=== PATIENT | female | born 1965 | race Caucasian/White ===

== ENCOUNTER → 2019-08-10 | Outpatient (CLI) | payer BC ==
--- NOTE | 2019-08-10 10:47 | Diagnostic Imaging Report ---
INDICATION: Right elbow pain. TIME OF EXAMINATION: 10:27 AM. COMPARISON: No prior studies are available for comparison. FINDINGS: The alignment is normal. The joint spaces are well-maintained. No fracture, dislocation, or effusion is detected. IMPRESSION: No acute bony abnormality is detected. Dictated by: Dictated on workstation # [id number]
== END ==
LOC: RAD FS 10:20
PROVIDERS: ATTEND Nurse Practitioner Family
DX: M25.521 Pain in right elbow (principal)
CPT/HCPCS: 73080

== ENCOUNTER → 2020-10-25 | Outpatient (CLI) | payer BC ==
--- NOTE | 2020-10-25 10:31 | Diagnostic Imaging Report ---
INDICATION: Knee pain COMPARISON: None available TECHNIQUE: 3 radiographs of the left knee dated 10/25/2020. FINDINGS: No acute fracture or dislocation. No destructive osseous process. Minimal medial joint space narrowing. Small superior patellar enthesophytes. No significant osteophytosis. No knee joint effusion. No suspicious radiopaque foreign body. IMPRESSION: No acute osseous abnormality with very minimal degenerative changes for age. Dictated by: Dictated on workstation # [id number]
== END ==
LOC: RAD FS 09:45
PROVIDERS: ATTEND Nurse Practitioner Family
DX: M25.562 Pain in left knee (principal)
CPT/HCPCS: 73562

== ENCOUNTER 2021-12-01 05:32 | Outpatient (RCR) | payer BC ==
[~2021-12-01] VITALS: Ht 157.5 cm; Wt 83.0 kg
== END 2021-12-01 08:24 | disposition home or self-care (01) ==
LOC: PREOP 05:32
PROVIDERS: ATTEND Surgery
DX: Z01.818 Encounter for other preprocedural examination (principal)

== ENCOUNTER → 2021-12-01 | Outpatient (CLI) | payer BC ==
[~2021-12-01] MED LIST: BUPR-168 PO; CYCL10TA25 PO; ESTR0.62 PO; GABA300S2 PO; MELO15TA14 PO; METF-399 PO; ROSU20TA32 PO
== END ==
LOC: LAB FS 10:55
PROVIDERS: ATTEND Surgery
DX: R10.13 Epigastric pain (principal); Z20.822 Contact with and (suspected) exposure to COVID-19
CPT/HCPCS: 87635

== ENCOUNTER 2021-12-04 08:03 | Day surgery (SDC) | payer BC ==
[~2021-12-04] VITALS: Ht 157.5 cm; Wt 83.3 kg
[2021-12-04] MEDS ORDERED: LACTATED RINGERS 1,000 ML IV ONE (08:11)
[2021-12-04] MEDS ORDERED: LACTATED RINGERS 1,000 ML IV STA (08:24)
[2021-12-04 08:25] VITALS: BP 120/81
--- NOTE | 2021-12-04 08:28 | Progress Note-Pre Operative ---
Pre-Operative Progress Note H&P Reviewed The H&P was reviewed, patient examined and no changes noted. Time Seen by Provider: 08:23 Date H&P Reviewed: Dec 04, 2021 Time H&P Reviewed: 08:23 Pre-Operative Diagnosis: Epigastric pain, GERD JULIANO DUARTE DO Dec 04, 2021 08:28
[2021-12-04] MEDS ORDERED: HURRICAINE EXT TUBE (BENZOCAINE) XX PRN (08:30)
[2021-12-04] MEDS ORDERED: PROPOFOL INJECTION 50 ML IV ONE (09:55)
[2021-12-04] MEDS ORDERED: MIDAZOLAM 2 MG/2 ML (VERSED) VIAL ONE (09:55)
--- NOTE | 2021-12-04 10:09 | Progress Note-Post Operative ---
Post-Operative Progess Note Surgeon (s)/Sawyer Helper (s) Surgeon JULIANO DUARTE DO Sawyer Helper: none Pre-Operative Diagnosis Epigastric pain, GERD Post-Operative Diagnosis Gastritis Small hiatal hernia Esophagitis Procedure & Operative Findings Date of Procedure 12/04/21 Procedure Performed/Findings EGD with bx PROCEDURE NOTE: After informed consent was obtained, the patient was brought to the endoscopy suite, placed in bed in left lateral decubitus position. She was administered IV sedation by the MASTER SONAR TECHNICIAN who then monitored vitals the entire time, heart rate, blood pressure and pulse ox and the scope was inserted down the mouth through the esophagus into the stomach. On the way down, noted some mild esophagitis, took a picture, pushed into the stomach, pushed past the antrum into the duodenum. Duodenum looked good. Pulled back and did a biopsy of antrum, then retroflexed the scope, saw a small hiatal hernia, took a picture of this and then pulled the scope into the GE junction, took another picture of the hiatal hernia and then did two biopsies of the GE junction. Pushed the scope back into the stomach, suctioned all the air out of the stomach. At this point pulled the scope up the esophagus and out the mouth. The patient tolerated the procedure, and she recovered in endoscopy suite. Anesthesia Type IV sedation by MASTER SONAR TECHNICIAN Estimated Blood Loss Estimated blood loss (mL): scant Specimens/Packing Specimens Removed antral bx GE jxn bx x 2 JULIANO DUARTE DO Dec 04, 2021 10:09
--- NOTE | 2021-12-04 10:10 | Endoscopy Discharge Instruct ---
Endo Procedure/Findings Findings 1.: Gastritis 2.: Hiatal Hernia Discharge Instructions - Activity: You might feel a little sleepy until tomorrow. This is due to the medicine you received to relax you. Until tomorrow, you should: NOT drive a car, operate machinery or power tools. NOT drink any alcoholic beverages. NOT make any important decisions or sign importortant papers. Do not return to work until tomorrow, unless otherwise instructed. Resume previous activities tomorrow. Diet: Start by taking liquids. If you tolerate liquids, advance to solid food. 1.: EGD in 1 year, EGD in 3 years (depending on pathology) Notify Physician - If you experience excessive bleeding, unusual abdominal pain, fever, or chest pain, contact your doctor immediately. JULIANO DUARTE DO Dec 04, 2021 10:10
[2021-12-04 10:11] VITALS: BP 124/66
[2021-12-04 10:16] VITALS: BP 141/75
[2021-12-04 10:21] VITALS: BP 124/68
[2021-12-04 10:25] VITALS: BP 124/68
--- NOTE | 2021-12-04 10:47 | Anesthesia-General Post-Op ---
MAC Patient Condition Mental Status/LOC: Same as Preop Cardiovascular: Satisfactory Nausea/Vomiting: Absent Respiratory: Satisfactory Pain: Controlled Complications: Absent Post Op Complications Complications None Follow Up Care/Instructions Patient Instructions None needed. Anesthesiology Discharge Order Discharge Order Patient is doing well, no complaints, stable vital signs, no apparent adverse anesthesia problems. No complications reported per nursing. OSCAR MONTALVO CRNA Dec 04, 2021 10:47
[2021-12-04 10:50] VITALS: BP 123/70
== END 2021-12-04 10:50 | disposition home or self-care (01) ==
LOC: ENDO 08:03
PROVIDERS: ATTEND Surgery
DX: K29.70 Gastritis, unspecified, without bleeding (principal); K21.00 Gastro-esophageal reflux disease with esophagitis, without bleeding; K44.9 Diaphragmatic hernia without obstruction or gangrene; F17.200 Nicotine dependence, unspecified, uncomplicated; E11.40 Type 2 diabetes mellitus with diabetic neuropathy, unspecified; F32.A Depression, unspecified; F41.9 Anxiety disorder, unspecified; Z79.84 Long term (current) use of oral hypoglycemic drugs; Z79.899 Other long term (current) drug therapy

== ENCOUNTER 2021-12-07 05:33 | Outpatient (CLI) | payer BC ==
[~2021-12-07] VITALS: Ht 160 cm; Wt 73.0 kg
== END 2021-12-07 11:21 | disposition home or self-care (01) ==
LOC: PREOP 05:33
PROVIDERS: ATTEND Surgery
DX: Z01.818 Encounter for other preprocedural examination (principal)

== ENCOUNTER 2021-12-13 09:16 | Day surgery (SDC) | payer BC ==
[2021-12-13] VITALS (10 sets, daily range): BP systolic 121–165; BP diastolic 58–91
[~2021-12-13] VITALS: Ht 160 cm; Wt 73.0 kg
--- NOTE | 2021-12-13 09:38 | Progress Note-Pre Operative ---
Pre-Operative Progress Note H&P Reviewed The H&P was reviewed, patient examined and no changes noted. Time Seen by Provider: 09:34 Date H&P Reviewed: Dec 13, 2021 Time H&P Reviewed: 09:34 Pre-Operative Diagnosis: back lipoma JULIANO DUARTE DO Dec 13, 2021 09:38
[2021-12-13] MEDS ORDERED: ONDANSETRON 4 MG/2 ML (SDV) Z0FRAN ONE (09:43)
[2021-12-13] MEDS ORDERED: GLYCOPYRROLATE 0.2 MG/ML (ROBINUL) 2 ML VIAL ONE ×2 (09:43→09:44)
[2021-12-13] MEDS ORDERED: proPOfol 200 MG/20 ML (DIPRIVAN) VIAL IV ONE (09:43)
[2021-12-13] MEDS ORDERED: NEOSTIGMINE 3 MG/3 ML VIAL ONE ×2 (09:43→09:44)
[2021-12-13] MEDS ORDERED: fentaNYL INJ 100 MCG/2 ML AMP ONE (09:43)
[2021-12-13] MEDS ORDERED: MIDAZOLAM 2 MG/2 ML (VERSED) VIAL ONE (09:43)
[2021-12-13] MEDS ORDERED: LIDOCAINE PF 2% 5 ML (XYLOCAINE) VIAL ONE (09:43)
[2021-12-13] MEDS ORDERED: ROCURONIUM 50 MG/5 ML (ZEMURON) VIAL IV ONE (09:44)
[2021-12-13] MEDS ORDERED: LIDOCAINE/EPI 1%-1:200,000 (XYLOCAINE) 30 ML VIAL ONE (09:52)
[2021-12-13] MEDS ORDERED: ceFAZolin 2 GM IV Premixed 50 ML ONE (09:55)
[2021-12-13] MEDS ORDERED: LACTATED RINGERS 1,000 ML IV PRN (10:30)
[2021-12-13] MEDS ORDERED: ceFAZolin 2 GM IV Premixed 50 ML IV ONE (10:30)
[2021-12-13] MEDS ORDERED: SEVOFLURANE (ULTANE) 15 ML INHAL SOLN ONE (11:18)
[2021-12-13] MEDS ORDERED: morphine INJ 10 MG/ML 1ML (SYR OR VIAL) IVP ONE (12:00)
[2021-12-13] MEDS ORDERED: ONDANSETRON 4 MG/2 ML (SDV) Z0FRAN IVP PRN (12:00)
[2021-12-13] MEDS ORDERED: fentaNYL INJ 100 MCG/2 ML AMP IVP ONE (12:00)
[2021-12-13] MEDS ORDERED: PROMETHAZINE INJ 25 MG/ML (PHENERGAN) AMP IVP ONE (12:00)
[2021-12-13] MEDS ORDERED: MEPERIDINE (DEMEROL) INJ 50 MG/ML IVP ONE (12:00)
--- NOTE | 2021-12-13 12:00 | Anesthesia-General Post-Op ---
General Patient Condition Mental Status/LOC: Same as Preop Cardiovascular: Satisfactory Nausea/Vomiting: Absent Respiratory: Satisfactory Pain: Controlled Complications: Absent Post Op Complications Complications None Follow Up Care/Instructions Patient Instructions None needed. Anesthesia/Patient Condition Patient Condition Patient is doing well, no complaints, stable vital signs, no apparent adverse anesthesia problems. No complications reported per nursing. FEDERICO DICKERSON CRNA Dec 13, 2021 12:00
--- NOTE | 2021-12-13 13:06 | Progress Note-Post Operative ---
Post-Operative Progess Note Surgeon (s)/Advertising Account Executive (s) Surgeon JULIANO DUARTE DO Advertising Account Executive: LAURA Yap Pre-Operative Diagnosis back lipoma Post-Operative Diagnosis same pending path Procedure & Operative Findings Date of Procedure 12/13/21 Procedure Performed/Findings Exc back mass, 5.5 cm incision under the fascia Anesthesia Type GET Estimated Blood Loss Estimated blood loss (mL): scant Specimens/Packing Specimens Removed back mass probable lipoma JULIANO DUARTE DO Dec 13, 2021 13:06
[2021-12-13] MEDS ORDERED: ACHD5005 PO (13:07)
--- NOTE | 2021-12-13 13:08 | Discharge Inst-Surgical ---
Discharge Inst-Surgical Depart Medication/Instructions New, Converted or Re-Newed RX: Transmitted to Pharmacy Patient Instructions Follow up Appt: Make appointment for 1 week. [phone] Instructions: No lifting greater than 20 pounds. No strenuous activity. May shower in 24 hours, no tub bath or soaking. Use incentive spirometer at home as directed. No Smoking Skin/Wound Care: May remove bandages in am. You need to leave the Dermabond on incision it will fall off on it's own. Symptoms to Report: Appetite Changes, Extremity Discoloration, Numbness/Tingling, Swelling Increased, Bleeding Excessive, Eyesight Changes, Pain Increased, Urine Color Change, Constipation(Persistent), Fever over 101 degree F, Pain/Pressure in chest, Urinating Difficulty, Cough Up/Vomit Blood, Heart Beat Irreg/Pounding, Pain/Pressure in jaw, Cramps in feet or legs, Lightheadedness, Pain/Pressure in shoulder, Diarrhea(Persistent), Memory Changes Suddenly, Questions/Concerns, Weight gain consecutive days, Dizziness/Fainting, Nausea/Vomiting, Shortness of Breath, Weight gain over 2 pounds If questions or concerns contact your physician Or seek help at emergency department. Activity Activity as Tolerated: Yes Activity Instructions: Avoid Stress to Incision Diet Discharge Diet: No Restrictions Diet After 24 Hours: Clear Liquid if Nauseous If Any Problems/Questions/Issu: Contact Your Physician, Go to Emergency Room Skin/Wound Care Infection Signs and Symptoms: Increased Redness, Foul Odor of Wound, Increased Drainage, Skin Itchy or Has a Rash, Increased Swelling, Temperature Above 101 F Bathing Instructions: Shower Stitches/Lillian/Dermabond Dis: JULIANO Borja DO Dec 13, 2021 13:08
--- NOTE | 2021-12-13 19:29 | OPERATIVE REPORT ---
DATE OF SERVICE: 12/13/2021 PREOPERATIVE DIAGNOSIS: Back mass. POSTOPERATIVE DIAGNOSIS: Back mass, pending pathology, probable lipoma. PROCEDURE PERFORMED: Excision of back mass. It was subfascial, 5.5 cm incision. SURGEON: Yoan Hager DO. MEDICAL RECORDS COORDINATOR: LETITIA Yap. SPECIMEN: Back mass sent to pathology. BLOOD LOSS: Scant. FLUIDS: Per anesthesia. POSTOPERATIVE CONDITION: Stable. INDICATION FOR PROCEDURE: The patient is a 56-year-old female, who has a mass on her back and it has been causing her pain and wanted to get this removed. FINDINGS: The patient had a back mass, looked like a lipoma. It was actually subfascial and in between and under the muscle, sent to pathology. PROCEDURE NOTE: After informed consent was obtained, the patient was brought to the operating room. She was intubated and placed on table in a prone position. She was sterilely prepped and draped in normal fashion. Local lidocaine was used to infiltrate the skin above and around this lump on her back. I made an incision with #15 blade, carried down through the skin into the subcutaneous tissue. This measured about 5.5 cm. I continued this incision down through the subcutaneous tissue and fat with the Bovie electrocautery, went down actually to go, this lump was under the fascia and under the muscle, had actually incised the fascia and then able to spread the muscle apart and then grabbed this mass and kind of pulled it out. It looked like it was just a lipoma, cut the bottom part off with Bovie electrocautery. Copiously irrigated with normal saline, then elected to close. Closed the fascia with 3-0 Vicryl two interrupted sutures and then closed the subcutaneous tissue with 3-0 Vicryl two interrupted sutures and then closed the skin with 4-0 undyed Monocryl five interrupted subcuticular stitches. Area was cleaned and dried. Dermabond was placed as well as dressing. The patient tolerated the procedure. Sponge, instrument, and needle count were correct at the end of the case. Job ID: [id number] DocumentID: [id number] Dictated Date: 12/13/2021 13:15:40 Solidworks Drafter Date: 12/13/2021 19:28:13 Dictated By: YOAN HAGER DO
== END 2021-12-13 13:40 ==
LOC: SDC 09:16
PROVIDERS: ATTEND Surgery
DX: D17.1 Benign lipomatous neoplasm of skin and subcutaneous tissue of trunk (principal); E11.40 Type 2 diabetes mellitus with diabetic neuropathy, unspecified; F32.A Depression, unspecified; F41.9 Anxiety disorder, unspecified; M79.7 Fibromyalgia; F17.210 Nicotine dependence, cigarettes, uncomplicated; M19.90 Unspecified osteoarthritis, unspecified site; R10.10 Upper abdominal pain, unspecified; Z79.84 Long term (current) use of oral hypoglycemic drugs; Z79.1 Long term (current) use of non-steroidal anti-inflammatories (NSAID); Z79.899 Other long term (current) drug therapy
CPT/HCPCS: 82947; 87081; 88304